=== PATIENT | male | born 1975 | race Two or more races ===

== ENCOUNTER 2024-07-08 06:10 | Emergency (ER) | payer MEDICAID, SELFPAY ==
[2024-07-08 06:20] VITALS: BP 131/71; PULSE 88; RESP 17; TEMP 36.6; O2SAT 96
--- NOTE | 2024-07-08 06:48 | EDNOTE_ITS ---
<Statement entered by Olive Naik MD - 07/08/24 11:33> As co-signing physician, I was present and available for consult prn. I concur with the plan and care as documented by the midlevel provider. Lower Extremity Injury RME/HPI General Chief Complaint: Ankle/Foot Injury Stated Complaint: BILATERAL FOOT PAIN Time Seen by Provider: 07/08/24 06:26 Source: patient Arrival date/time: 07/08/24 06:10 This is a 49-year-old male who presents emergency department with complaints of bilateral feet pain. Patient does report he is homeless and recently was released from [facility]. States that he has been walking in the streets which help worsen his feet. Reports he has cracked skin from the moisture here for an evaluation. Denies any injury, open sores, no fever no chills. Mode of arrival: ambulatory Limitations: no limitations Related Data Allergies Allergy/AdvReac Type Severity Reaction Status Date / Time No Known Allergies Allergy Verified 07/08/24 06:13 Review of Systems Review of Systems Systems Reviewed: All systems reviewed, normal except as documented Narrative Review of Systems: Gen: No fever, no chills, no weight loss EYES: No discharge, no visual changes, no pain HEENT: No ear pain, no congestion, no sore throat PULM: No shortness of breath, no cough, no congestion CV: No chest pain, no dyspnea on exertion, no palpitations GI: No nausea, no vomiting, no diarrhea, no pain, no constipation : No frequency, no urgency,? no dysuria Musc/skel: No joint pain, no back pain Skin: Bilateral feet pain and cracked skin to feet ED Exam Narrative Physical exam: 49-year-old male awake and alert appears disheveled answering questions General Limitations: Present no limitations General appearance: Present alert and in no apparent distress Head Head exam: Present atraumatic Eye Eye exam: Present normal appearance, PERRL and EOMI ENT ENT exam: Present normal exam, normal oropharynx and mucous membranes moist Neck Neck exam: Present normal inspection, full ROM and trachea midline Chest Chest inspection: Present normal inspection and symmetric chest wall rise Respiratory Respiratory exam: Present normal lung sounds bilaterally Cardiovascular Cardiovascular exam: Present regular rate, normal rhythm and normal heart sounds Abdominal Exam Abdominal exam: Present soft and normal bowel sounds Extremities Exam Extremities exam: Present full ROM Expanded Lower Extremity Exam Neurovascular/Tendon exam: Present normal capillary refill and other (Bilateral soles of feet extremely dry and cracked skin. No open sores or infection.) Back Exam Back exam: Present normal inspection and full ROM Neurological Exam Neurological exam: Present alert, oriented X3 and CN II-XII intact Psychiatric Psychiatric exam: Present normal affect and normal mood Skin Skin exam: Present warm, dry, intact and normal color Course Quality Measures none Vital Signs Vital signs: Vital Signs Temperature 97.9 F 07/08/24 06:20 Pulse Rate 88 07/08/24 06:20 Respiratory Rate 17 07/08/24 06:20 Blood Pressure 131/71 H 07/08/24 06:20 Pulse Oximetry (%) 96 07/08/24 06:20 Oxygen Delivery Method Room Air 07/08/24 06:20 Extremity Injury, Lower MDM Narrative MDM Narrative:: 49-year-old male evaluated in the emergency department for complaints of cracked sore feet. Advised patient that most likely he has tinea pedis and ointment was given to patient for emollient and treatment. Advised a constant walking and constant moisture of his shoes can precipitate the symptoms advised to follow-up with his PCP return to the emergency department this any worsening symptoms and condition. Patient data External records reviewed:: [facility] previous records Clinical information provided by:: patient Social determinants that could affect healthcare access:: none (Alcohol substance abuse housing) Patient has the following chronic illnesses:: see above How is presenting disease/condition affected by chronic disease/condition?: exacerbated by Evaluation data The following diagnostics were reviewed and interpreted by me:: radiology exam(s) Lab and/or radiology exams considered but not ordered:: Considered x-ray however patient has not had any injury Interpretation Summary: Not applicable Medications / Prescriptions Medications or Prescriptions considered but not ordered:: Considered antibiotics however no actual infection noted. Patient was provided with a tenia emollient from hospital to use on his soles of his feet. Medication administrations:: No Consultations Consultation(s) initiated? (list below): No Diagnosis Extremity Injury, Lower Differential Diagnosis: ankle sprain and strain and other (Cellulitis, dermatitis, tinea pedis) Most likely diagnosis given after review of the tests above:: Tinea pedis dry feet Admission Indicated Admission indicated?: not indicated Admission Request Was there a request for admission?: No Disposition Plan Disposition Plan: Discharge Discharge Attestation Discharge Attestation: The patient and all family members were given an opportunity to ask questions and understood the discharge instructions. Discharge instructions specifically effects, indications for sooner follow up or return to the emergency department, and the expected course of current diagnosis. Patient condition: Stable Discharge Plan Plan Patient Disposition: HOME (Self Care) Patient condition on transfer: Stable Prescriptions/Referrals Referrals: No Primary/Family,Physician [Primary Care Provider] - In 1 week Problem List Clinical Impression: Cracked skin on feet, Tinea pedis Patient/Caregiver Discharge Instructions Discharge Activity: activity as tolerated Education Materials: ED Athlete's Foot Additional Instructions: Please refrain from walking too much on that area worsen the cracks on your feet. Apply an emollient on both feet. Follow-up with your clinic or doctor. Print Language: Maori Stand Alone Forms: [employer] Award Info., Patient Portal Info Letter PA/FOREIGN COLLECTION CLERK Supervising Physician PA/FOREIGN COLLECTION CLERK Supervising Physician: Dr naik
== END 2024-07-08 07:04 | disposition home or self-care (01) ==
PROVIDERS: Emergency Provider Emergency Medicine
DX: B35.3 Tinea pedis (principal)
CPT/HCPCS: 99281